=== PATIENT | female | born 1950 | race Caucasian/White ===

== ENCOUNTER 2025-08-10 18:49 | Inpatient (IN) | payer OTHER ==
[~2025-08-10] VITALS: Ht 170.2 cm; Wt 69.9 kg
[2025-08-10] MEDS: ACETAMINOPHEN 500MG TABLET PO SCH (19:27)
[2025-08-10] MEDS: CEFTRIAXONE 1GM/50ML 50 ML IV SCH (19:27)
[2025-08-10] MEDS: SODIUM CHLORIDE 0.9% (SEPSIS BOLUS) IV SCH (19:27)
[2025-08-10 19:34] LABS: HEMATOCRIT. 40.0 % (36.0-48.0); HEMOGLOBIN. 13.1 g/dL (12.0-16.0); MEAN PLATELET VOLUME 7.0 fl (7.4-10.4); PLATELET 264 x1000/uL (130-400); RED BLOOD CELL COUNT 4.46 mill/uL (4.2-5.4); RED CELL DISTRIBUTION WIDTH 13.3 % (11.6-14.6)
[2025-08-10 19:50] LABS: INR 1.1
[2025-08-10 19:56] LABS: CREATININE 1.4 mg/dL (0.6-1.0); UREA NITROGEN BLOOD 19 mg/dL (9-23)
[2025-08-10 19:57] LABS: ETHANOL BLOOD < 10 mg/dL (<10); PROTEIN TOTAL 7.7 g/dL (6.0-8.3); TROPONIN I HIGH SENSITIVITY 24 ng/L (3.0-34)
[2025-08-10 19:58] LABS: ASPARTATE AMINOTRANSFERASE 23 IU/L (<34); BILIRUBIN DIRECT 0.2 mg/dL (<=3.0)
[2025-08-10 19:59] LABS: BILIRUBIN TOTAL 0.8 mg/dL (0.1-1.0)
[2025-08-10 20:05] LABS: CLARITY URINE CLEAR (CLEAR); GLUCOSE URINE NEGATIVE (NEGATIVE); KETONES URINE NEGATIVE (NEGATIVE); LEUKOCYTE ESTERASE URINE 1+ (NEGATIVE); NITRITE URINE NEGATIVE (NEGATIVE); OCCULT BLOOD URINE 2+ (NEGATIVE); PH URINE 7.0 (4.5-8.0); PROTEIN URINE TRACE (NEGATIVE); SPECIFIC GRAVITY URINE 1.016 (1.005-1.030); UROBILINOGEN URINE 0.2 E.U./dL (0.2-1.0)
[2025-08-10 20:12] LABS: LYMPHOCYTES % MANUAL 5.0 % (20.0-60.0); MONOCYTES % MANUAL 10.0 % (2.0-8.0); NEUTROPHILS % MANUAL 85.0 % (45.0-75.0)
[2025-08-10 20:13] LABS: PLATELET ESTIMATE NORMAL
[2025-08-10 20:31] LABS: COLOR URINE STRAW (YELLOW)
[2025-08-10 20:33] LABS: BACTERIA URINE TRACE; RENAL EPITHELIAL CELLS URINE Rare /lpf; SQUAMOUS EPITHELIAL CELL URINE 1+ /lpf (RARE/1+)
[2025-08-10 23:30] VITALS: BP 124/57; PULSE 18; RESP 18; TEMP 36.0844
[2025-08-11] VITALS (7 sets, daily range): BP systolic 110–145; BP diastolic 50–80; PULSE 59–66; RESP 16–18; TEMP 36.1–36.7; O2SAT 94–99
[2025-08-11] MEDS ORDERED: ONDANSETRON HCL 4MG/2ML INJ IV PRN (00:30)
[2025-08-11] MEDS: HYDROCODONE/ACETAMINOPHEN 10/325MG TABLET PO PRN (01:45)
[2025-08-11 05:52] LABS: HEMATOCRIT. 35.2 % (36.0-48.0); HEMOGLOBIN. 11.3 g/dL (12.0-16.0); MEAN PLATELET VOLUME 7.5 fl (7.4-10.4); PLATELET 213 x1000/uL (130-400); RED BLOOD CELL COUNT 3.82 mill/uL (4.2-5.4); RED CELL DISTRIBUTION WIDTH 13.9 % (11.6-14.6)
[2025-08-11 05:58] LABS: CREATININE 1.1 mg/dL (0.6-1.0)
[2025-08-11 05:59] LABS: LDL CHOLESTEROL 92.0 mg/dL (5-100); TRIGLYCERIDE 85.0 mg/dL (0-150); UREA NITROGEN BLOOD 14.0 mg/dL (9-23)
[2025-08-11] MEDS: AMLODIPINE 10MG TABLET PO SCH (09:00)
[2025-08-11] MEDS: ATORVASTATIN CALCIUM 20MG TABLET PO SCH (09:14)
[2025-08-11] MEDS: ASPIRIN 81MG TABLET PO SCH (09:14)
[2025-08-11] MEDS ORDERED: GADOTERATE MEGLUMINE 5 MMOL/10 ML VIAL IV ONE (10:23)
[2025-08-11] MEDS ORDERED: GUAIFENESIN-DM 200MG-20MG/10ML UDC PO PRN (11:15)
[2025-08-11] MEDS ORDERED: IOHEXOL-300 100 ML BOTTLE ONE (13:16)
[2025-08-11] MEDS: CEFTRIAXONE 2GM/50ML 50 ML IV SCH (13:32)
[2025-08-11] MEDS: AZITHROMYCIN 500 MG TABLET PO SCH (15:37)
[2025-08-11 16:04] LABS: INFLUENZA TYPE A Presumptive Negative (Pres. Neg.); INFLUENZA TYPE B Presumptive Negative (Pres. Neg.)
[2025-08-11 16:05] LABS: RESPIRATORY SYNCYTIAL VIRUS Not Detected (Not Detectd)
[2025-08-11] MEDS ORDERED: SODIUM CHLORIDE 10% FOR INH 15ML NEB INH SCH (16:30)
[2025-08-11] MEDS ORDERED: CEFTRIAXONE 1GM/50ML 50 ML IV SCH (18:00)
[2025-08-11] MEDS: IPRATROPIUM/ALBUTEROL 0.5-3(2.5)MG/3ML NEB HHN SCH (20:00)
[2025-08-12] VITALS (8 sets, daily range): BP systolic 108–142; BP diastolic 51–65; PULSE 58–76; RESP 16–22; TEMP 36.4–37.4; O2SAT 93–98
[2025-08-12 08:06] LABS: CREATININE 1.2 mg/dL (0.6-1.0); UREA NITROGEN BLOOD 11.0 mg/dL (9-23)
[2025-08-12 08:22] LABS: BASOPHILS % 0.4 % (0.0-2.0); EOSINOPHILS % 0.7 % (0.0-5.0); HEMATOCRIT. 34.2 % (36.0-48.0); HEMOGLOBIN. 11.2 g/dL (12.0-16.0); LYMPHOCYTES % 8.7 % (20.0-50.0); MEAN PLATELET VOLUME 7.3 fl (7.4-10.4); MONOCYTES % 5.0 % (2.0-8.0); NEUTROPHILS % 85.2 % (40.0-76.0); PLATELET 209 x1000/uL (130-400); RED BLOOD CELL COUNT 3.76 mill/uL (4.2-5.4); RED CELL DISTRIBUTION WIDTH 13.7 % (11.6-14.6)
[2025-08-12 16:33] LABS: LYMPHOCYTES % MANUAL 8.0 % (20.0-60.0); MONOCYTES % MANUAL 11.0 % (2.0-8.0); NEUTROPHILS % MANUAL 81.0 % (45.0-75.0); PLATELET ESTIMATE NORMAL
[2025-08-13] VITALS (10 sets, daily range): BP systolic 109–135; BP diastolic 49–68; PULSE 61–87; RESP 16–20; TEMP 35.8–36.7; O2SAT 95–99
[2025-08-13] MEDS: DIPHENHYDRAMINE 50MG CAPSULE PO PRN (22:15)
[2025-08-14] VITALS (9 sets, daily range): BP systolic 108–141; BP diastolic 43–74; PULSE 62–74; RESP 16–19; TEMP 35.6–36.7; O2SAT 96–98
[2025-08-14 08:05] LABS: BASOPHILS % 0.9 % (0.0-2.0); EOSINOPHILS % 6.5 % (0.0-5.0); HEMATOCRIT. 33.0 % (36.0-48.0); HEMOGLOBIN. 11.1 g/dL (12.0-16.0); LYMPHOCYTES % 20.5 % (20.0-50.0); MEAN PLATELET VOLUME 7.6 fl (7.4-10.4); MONOCYTES % 7.1 % (2.0-8.0); NEUTROPHILS % 65.0 % (40.0-76.0); PLATELET 247 x1000/uL (130-400); RED BLOOD CELL COUNT 3.71 mill/uL (4.2-5.4); RED CELL DISTRIBUTION WIDTH 13.6 % (11.6-14.6)
[2025-08-14 08:34] LABS: CREATININE 1.0 mg/dL (0.6-1.0); UREA NITROGEN BLOOD 9.0 mg/dL (9-23)
[2025-08-14] MEDS: POTASSIUM CHLORIDE 20MEQ TABLET SR PO NR (12:46)
[2025-08-15] VITALS (8 sets, daily range): BP systolic 106–130; BP diastolic 55–69; PULSE 60–72; RESP 15–18; TEMP 36.1–36.9; O2SAT 97–98
[2025-08-15] MEDS: DIPHENHYDRAMINE 50MG/ML VIAL IV PRN (13:03)
[2025-08-15 16:30] LABS: BASOPHILS % 0.9 % (0.0-2.0); EOSINOPHILS % 6.1 % (0.0-5.0); HEMATOCRIT. 35.7 % (36.0-48.0); HEMOGLOBIN. 11.7 g/dL (12.0-16.0); LYMPHOCYTES % 25.7 % (20.0-50.0); MEAN PLATELET VOLUME 7.5 fl (7.4-10.4); MONOCYTES % 8.4 % (2.0-8.0); NEUTROPHILS % 58.9 % (40.0-76.0); PLATELET 245 x1000/uL (130-400); RED BLOOD CELL COUNT 3.95 mill/uL (4.2-5.4); RED CELL DISTRIBUTION WIDTH 13.7 % (11.6-14.6)
[2025-08-15 16:45] LABS: CREATININE 1.1 mg/dL (0.6-1.0); UREA NITROGEN BLOOD 11.0 mg/dL (9-23)
[2025-08-16] VITALS (9 sets, daily range): BP systolic 107–132; BP diastolic 51–78; PULSE 63–79; RESP 15–20; TEMP 36.3–37.1; O2SAT 95–98
[2025-08-16 11:58] LABS: BASOPHILS % 0.9 % (0.0-2.0); EOSINOPHILS % 6.2 % (0.0-5.0); HEMATOCRIT. 36.2 % (36.0-48.0); HEMOGLOBIN. 12.0 g/dL (12.0-16.0); LYMPHOCYTES % 25.0 % (20.0-50.0); MEAN PLATELET VOLUME 7.7 fl (7.4-10.4); MONOCYTES % 8.0 % (2.0-8.0); NEUTROPHILS % 59.9 % (40.0-76.0); PLATELET 237 x1000/uL (130-400); RED BLOOD CELL COUNT 4.03 mill/uL (4.2-5.4); RED CELL DISTRIBUTION WIDTH 13.9 % (11.6-14.6)
[2025-08-16 12:05] LABS: CREATININE 1.0 mg/dL (0.6-1.0)
[2025-08-16 12:06] LABS: UREA NITROGEN BLOOD 11.0 mg/dL (9-23)
[2025-08-17] VITALS: BP 101/54; PULSE 63; RESP 16; TEMP 36.4; O2SAT 98
[2025-08-17 04:00] VITALS: BP 115/53; PULSE 71; RESP 17; TEMP 36.4; O2SAT 98
[2025-08-17 08:00] VITALS: BP 121/57; PULSE 60; RESP 20; TEMP 36.3; O2SAT 99
[2025-08-17 12:00] VITALS: BP 115/57; PULSE 66; RESP 17; TEMP 37; O2SAT 97
[2025-08-17 12:20] LABS: BASOPHILS % 0.5 % (0.0-2.0); EOSINOPHILS % 5.2 % (0.0-5.0); HEMATOCRIT. 36.1 % (36.0-48.0); HEMOGLOBIN. 12.1 g/dL (12.0-16.0); LYMPHOCYTES % 21.8 % (20.0-50.0); MEAN PLATELET VOLUME 7.2 fl (7.4-10.4); MONOCYTES % 6.8 % (2.0-8.0); NEUTROPHILS % 65.7 % (40.0-76.0); PLATELET 248 x1000/uL (130-400); RED BLOOD CELL COUNT 4.01 mill/uL (4.2-5.4); RED CELL DISTRIBUTION WIDTH 13.6 % (11.6-14.6)
[2025-08-17 12:35] LABS: CREATININE 1.1 mg/dL (0.6-1.0); UREA NITROGEN BLOOD 18.0 mg/dL (9-23)
[2025-08-17 16:00] VITALS: BP 135/69; PULSE 74; RESP 18; TEMP 36.4; O2SAT 98
[2025-08-17 16:35] VITALS: BP 135/69; PULSE 74; RESP 18; TEMP 97.6
== END 2025-08-17 17:15 | disposition home or self-care (01) | DRG 720 ==
LOC: ER 18:49 → EDBEDREQ 21:57 → EDBEDREQTM 21:57 → ENRESERV 22:47 → 5WST 23:16
PROVIDERS: ADMIT Internal Medicine; ATTEND Internal Medicine
DX: A41.9 Sepsis, unspecified organism (principal); E87.20 Acidosis, unspecified; J18.9 Pneumonia, unspecified organism; N39.0 Urinary tract infection, site not specified; N17.9 Acute kidney failure, unspecified; I10 Essential (primary) hypertension; D64.9 Anemia, unspecified; H70.93 Unspecified mastoiditis, bilateral; E87.6 Hypokalemia; Z20.822 Contact with and (suspected) exposure to COVID-19
CPT/HCPCS: 36415; 70553; 71045; 71260; 80048; 80061; 80076; 80320; 81003; 82962; 83605; 84145; 84484; 85025; 87116; 87149; 87153; 87420; 87426; 87556; 87804; 93005; 94070; 94640; 94664; 94760; 96365; 99291; A9577; J0696; J1200; J7131; Q0163; Q9967; G0480